=== PATIENT | female | born 1985 | race Caucasian/White ===

== ENCOUNTER 2019-03-12 09:38 | Outpatient (REF) | payer OTHER, SELFPAY ==
--- NOTE | 2019-03-12 09:15 | PAPFT_PTH ---
PATIENT: Susannah Van LOC: [facility] U#:[id number] AGE/SX: 33/F ROOM: RE03/12/[address]: PAULETTE Marrero : 1985 BED: DIS: 03/12/2019 SPEC #: [id number] RECD: 03/12/19 12:48 STATUS: [place] RECesar #: [id number] AMARJIT: 03/12/19 09:[address]: Liseth Brown DEPT: [facility] Cytology RECD BY: Daisy Bucio ENTERED: 03/12/19 12:48 SP TYPE: PAPFT OTHR DR: Unknown,Unknown Tissues: 1 - CX/ENDOCX FOR PAP SMEARS Procedures: PAP THIN PREP/[facility] Screening HPV DNA PROBE Comments: [id number]
== END 2019-03-12 09:58 ==
LOC: LBN 09:38
PROVIDERS: Visit Provider Nurse Practitioner Family
DX: Z12.4 Encounter for screening for malignant neoplasm of cervix (principal); Z11.51 Encounter for screening for human papillomavirus (HPV)
CPT/HCPCS: 88142; 87624

== ENCOUNTER 2022-06-27 03:00 | Outpatient (CLI) | payer OTHER, SELFPAY ==
[2022-06-27 13:30] LABS: HCT 42.1 % (36.0-46.0); HGB 14.1 g/dL (11.2-15.7); MCH 30.6 pg (27.0-33.0); MCHC 33.5 % (32.0-36.0); MCV 91 fL (80-95); MPV 9.8 fL (8.0-11.0); Platelet Count 257 10^3/uL (130-400); RBC 4.61 10^6/uL (3.93-5.22); RDW 12.6 % (11.7-14.6); RDW-SD 41.8 fL; WBC 10.51 10^3/uL (4.4-10.8)
[2022-06-27 14:15] LABS: TSH (W/Ref FT4) 2.83 uIU/mL (0.36-3.74)
== END 2022-06-27 03:01 | disposition home or self-care (01) ==
LOC: LBO 03:00
PROVIDERS: Visit Provider Nurse Practitioner Women's Health
DX: N92.5 Other specified irregular menstruation (principal); N93.8 Other specified abnormal uterine and vaginal bleeding
CPT/HCPCS: 36415; 85027; 84443

== ENCOUNTER 2023-12-14 03:45 | Outpatient (CLI) | payer OTHER, SELFPAY ==
[2023-12-14 13:44] LABS: Hemoglobin A1C 5.6 % (<5.7)
[2023-12-14 13:54] LABS: Calculated LDL 86 mg/dL (<100); Cholesterol 164 mg/dL (<200); HDL Cholesterol 51 mg/dL (40-60); TSH 2.96 uIU/mL (0.36-3.74); Triglyceride 137 mg/dL (<150)
== END 2023-12-14 03:46 | disposition home or self-care (01) ==
LOC: LOS 03:45
PROVIDERS: Visit Provider Physician Assistant
DX: E66.9 Obesity, unspecified (principal); Z13.1 Encounter for screening for diabetes mellitus; Z13.220 Encounter for screening for lipoid disorders
CPT/HCPCS: 36415; 80061; 83036; 84439; 84443

== ENCOUNTER 2023-12-19 14:45 | Outpatient (CLI) | payer OTHER, SELFPAY ==
[2023-12-19 13:42] LABS: Abs Immature Grans 0.07 10^3/uL (0.0-0.06); Absolute Basophil Count 0.06 10^3/uL (0.0-0.2); Absolute Eosinophil Count 0.24 10^3/uL (0.0-0.7); Absolute Lymphocyte Count 2.37 10^3/uL (1.2-3.4); Absolute Monocyte Count 0.63 10^3/uL (0.1-0.8); Absolute Neutrophil Count 6.59 10^3/uL (1.2-6.7); Basophils % 0.6 %; Eosinophils % 2.4 %; HCT 43.6 % (36.0-46.0); HGB 14.5 g/dL (11.2-15.7); Immature Grans % 0.7 %; Lymphocytes % 23.8 %; MCH 31.3 pg (27.0-33.0); MCHC 33.3 % (32.0-36.0); MCV 94 fL (80-95); MPV 9.7 fL (8.0-11.0); Monocytes % 6.3 %; Neutrophils % 66.2 %; Platelet Count 231 10^3/uL (130-400); RBC 4.64 10^6/uL (3.93-5.22); RDW 12.1 % (11.7-14.6); RDW-SD 41.9 fL; WBC 9.96 10^3/uL (4.4-10.8)
[2023-12-19 14:00] LABS: ALT 85 U/L (14-59); AST 45 U/L (15-37); Alkaline Phosphatase 57 U/L (46-116); Anion Gap 7.3 mmol/L (3-11); BUN 9 mg/dL (7-18); Bilirubin, Total 0.38 mg/dL (0.2-1.0); CO2 29.7 mmol/L (21.0-32.0); CREATININE 1.1 mg/dL (0.55-1.02); Calcium 9.6 mg/dL (8.5-10.1); Chloride 103 mmol/L (98-107); Estimated GFR 65.96 (mL/min/1.73m2); Glucose 104 mg/dL (74-106); Lipase 80 U/L (16-77); Sodium 140 mmol/L (136-145); Total Protein 7.9 g/dL (6.4-8.2)
== END 2023-12-19 14:46 | disposition home or self-care (01) ==
LOC: LBO 14:50
PROVIDERS: Visit Provider Physician Assistant
DX: R10.9 Unspecified abdominal pain (principal)
CPT/HCPCS: 36415; 80053; 83690; 85025

== ENCOUNTER 2024-01-15 13:28 | Outpatient (CLI) | payer OTHER, SELFPAY ==
[2024-01-17 11:39] LABS: TB Interpretation Negative (Negative)
== END 2024-01-15 13:29 | disposition home or self-care (01) ==
LOC: LBO 13:42
PROVIDERS: PCP Physician Assistant; Visit Provider Nurse Practitioner
DX: Z11.1 Encounter for screening for respiratory tuberculosis (principal)
CPT/HCPCS: 36415; 86480